=== PATIENT | female | born 1975 ===

== ENCOUNTER 2019-09-10 12:13 | Emergency (ER) | payer OTHER ==
[2019-09-10 12:36] VITALS: BP 135/87
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
== END 2019-09-10 12:50 | disposition left against medical advice (07) ==
LOC: ED 12:13
DX: S00.83XA Contusion of other part of head, initial encounter (principal); R51 Headache; R42 Dizziness and giddiness; H92.01 Otalgia, right ear; D64.9 Anemia, unspecified; Z98.890 Other specified postprocedural states; Y04.2XXA Assault by strike against or bumped into by another person, initial encounter; Y93.89 Activity, other specified; Y92.89 Other specified places as the place of occurrence of the external cause; Y99.8 Other external cause status
CPT/HCPCS: 99282

== ENCOUNTER 2020-05-02 12:55 | Outpatient (CLI) | payer BC | END 2020-05-02 12:56 | disposition home or self-care (01) | LOC: MAMMO 12:55 | PROVIDERS: ATTEND Internal Medicine | DX: Z12.31 Encounter for screening mammogram for malignant neoplasm of breast (principal) | CPT/HCPCS: 77067 ==

== ENCOUNTER 2020-05-13 10:24 | Outpatient (CLI) | payer BC ==
[2020-05-13 13:18] LABS: Hepatitis B Surface Antigen Non-Reactive (Negative); Hepatitis C Virus Antibody Non-Reactive (NonReactive)
== END 2020-05-13 10:25 | disposition home or self-care (01) ==
LOC: LAB 10:24
PROVIDERS: ATTEND Obstetrics & Gynecology
DX: Z01.419 Encounter for gynecological examination (general) (routine) without abnormal findings (principal)
CPT/HCPCS: 36415; 80074; 86592; 86689

== ENCOUNTER 2020-05-21 10:09 | Outpatient (CLI) | payer BC ==
[2020-05-21 12:33] LABS: Basophils % (Auto) 0.6 % (0.0-1.8); Eosinophils # (Auto) 0.1 K/mm3 (0.0-0.4); Eosinophils % (Auto) 1.4 % (0.0-4.3); Hematocrit 24.3 % (30.3-42.9); Hemoglobin 7.8 gm/dl (10.1-14.3); Lymphocytes # (Auto) 2.5 K/mm3 (1.2-5.4); Lymphocytes % (Auto) 36.9 % (13.4-35.0); Mean Corpuscular HGB Conc 32 % (30-34); Monocytes # (Auto) 0.6 K/mm3 (0.0-0.8); Monocytes % (Auto) 8.3 % (0.0-7.3); Platelet Count 296 K/mm3 (140-440); Red Blood Count 3.94 M/mm3 (3.65-5.03); Red Cell Distribution Width 19.8 % (13.2-15.2)
[2020-05-21 12:36] LABS: Mean Corpuscular Volume 62 fl (79-97)
[2020-05-21 12:56] LABS: Alanine Aminotransferase 16 units/L (7-56); Albumin 4.7 g/dL (3.9-5); Blood Urea Nitrogen 11 mg/dL (7-17); Calcium 8.7 mg/dL (8.4-10.2); Chol/HDL Ratio 2.53 %; HDL Cholesterol 66 mg/dL (40-59); Hemolysis Index 2; Iron 8 ug/dL (37-170); LDL Cholesterol,Direct 103 mg/dL (50-130)
[2020-05-21 13:46] LABS: BUN/Creatinine Ratio 28
== END 2020-05-21 10:10 | disposition home or self-care (01) ==
LOC: LAB 10:09
PROVIDERS: ATTEND Internal Medicine
DX: Z13.0 Encounter for screening for diseases of the blood and blood-forming organs and certain disorders involving the immune mechanism (principal); R68.89 Other general symptoms and signs; E78.5 Hyperlipidemia, unspecified
CPT/HCPCS: 36415; 80053; 80061; 83001; 83540; 84443; 84703; 85025

== ENCOUNTER 2020-06-21 15:43 | Outpatient (CLI) | payer BC ==
--- NOTE | 2020-06-21 18:53 | Magnetic Resonance Report ---
MR lumbar spine wo con INDICATION / CLINICAL INFORMATION: 45 years Female; ACUTE LOWER BACK PAIN. TECHNIQUE: Multisequence, multiplanar images of the lumbar spine were obtained. Motion artifact is present. COMPARISON: None available. FINDINGS: ALIGNMENT: Straightening of the lumbar spine noted. VERTEBRAE:Grossly normal marrow signal and vertebral body height for age. VISUALIZED SPINAL CORD: No significant abnormality. Conus is grossly normal in appearance. INTERVERTEBRAL DISCS: Desiccation seen at L5-S1. [id number] ANALYSIS: L1-2: No significant abnormality. L2-3: Minimal disc bulge. Small extra foraminal disc protrusion on the right, which encroaches upon e xtra foraminal right L2 nerve. No impingement seen. L3-4: Minimal disc bulge. Small, broad-based lateral foraminal/extra foraminal disc protrusion on the right without significant sequela. L4-5: Minimal disc bulge and facet hypertrophy. L5-S1: Mild disc bulge. Foraminal/extra foraminal disc protrusion seen on the left with spondylosis. There is encroachment upon the left L5 nerve without impingement. PARASPINAL SOFT TISSUES: No significant abnormality. ADDITIONAL FINDINGS: None. IMPRESSION: 1. Degenerative changes of the lumbar spine as described above. Most marked findings appear to be at L5-S1, followed by L2-L3 4. Please correlate with dermatomal distribution of patient's symptoms, if p resent. Signer Name: Gio Antoine MD, III Signed: 06/21/2020 6:48 PM Workstation Name: [id number]
--- NOTE | 2020-06-21 19:52 | Magnetic Resonance Report ---
MR cervical spine wo con INDICATION / CLINICAL INFORMATION: 45 years Female; CERICALGIA. TECHNIQUE: Multisequence, multiplanar images of the cervical spine were obtained. COMPARISON: None available. FINDINGS: CRANIOCERVICAL JUNCTION:No significant abnormality. ALIGNMENT: Straightening of the cervical spine seen, which may be related to patient positioning. VERTEBRAE:Grossly normal marrow signal and vertebral body height for age. VISUALIZED SPINAL CORD: No significant abnormality. INTERVERTEBRAL DISCS: Grossly normal in height and signal intensity. [id number] ANALYSIS: C2-3: Mild facet hypertrophy on the left. C3-4: Small posterocentral disc protrusion. Mild facet hypertrophy. No significant sequela. C4-5: Very small posterocentral disc protrusion. Minimal facet hypertrophy. C5-6: Minimal disc bulge. C6-7: Minimal disc bulge. C7-T1: Facet hypertrophy noted bilaterally, without significant sequela. PARASPINAL SOFT TISSUES: No significant abnormality. ADDITIONAL FINDINGS: Mild to moderate mucosal thickening is seen in the sphenoid sinus on the right. IMPRESSION: 1. Degenerative changes of the cervical spine as described above. No single, dominant cause for patie nt's symptomatology appreciated. Signer Name: Gio Antoine MD, III Signed: 06/21/2020 7:48 PM Workstation Name: [id number]
== END 2020-06-21 15:44 | disposition home or self-care (01) ==
LOC: MRI 15:43
PROVIDERS: ATTEND Psychiatry & Neurology Neurology
DX: M51.27 Other intervertebral disc displacement, lumbosacral region (principal); M50.21 Other cervical disc displacement, high cervical region; M50.221 Other cervical disc displacement at C4-C5 level; M50.222 Other cervical disc displacement at C5-C6 level; M50.223 Other cervical disc displacement at C6-C7 level; M47.817 Spondylosis without myelopathy or radiculopathy, lumbosacral region
CPT/HCPCS: 72141; 72148

== ENCOUNTER 2021-08-08 14:49 | Outpatient (CLI) | payer BC | END 2021-08-08 14:50 | disposition home or self-care (01) | LOC: LAB 14:49 | PROVIDERS: ATTEND Obstetrics & Gynecology | DX: R53.83 Other fatigue (principal); R63.5 Abnormal weight gain; Z11.2 Encounter for screening for other bacterial diseases; Z11.3 Encounter for screening for infections with a predominantly sexual mode of transmission; Z20.2 Contact with and (suspected) exposure to infections with a predominantly sexual mode of transmission; A64 Unspecified sexually transmitted disease | CPT/HCPCS: 36415 ==

== ENCOUNTER 2021-08-29 07:38 | Outpatient (CLI) | payer BC ==
[2021-08-29 11:32] LABS: Hepatitis C Virus Antibody Non-Reactive (NonReactive)
[2021-08-29 11:33] LABS: Hepatitis B Surface Antigen Non-Reactive (Negative)
== END 2021-08-29 07:39 | disposition home or self-care (01) ==
LOC: LAB 07:38
PROVIDERS: ATTEND Obstetrics & Gynecology
DX: R53.83 Other fatigue (principal); R63.5 Abnormal weight gain; E53.8 Deficiency of other specified B group vitamins; E55.9 Vitamin D deficiency, unspecified
CPT/HCPCS: 36415; 80074; 82670; 83001; 84146; 84436; 84443; 86592; 86689